=== PATIENT | male | born 1970 | race Caucasian/White ===

== ENCOUNTER → 2019-03-23 15:08 | Outpatient (CLI) | payer OTHER, SELFPAY ==
[2019-03-23 16:26] LABS: Hemoglobin A1C 5.4 % (0.0-7.0)
[2019-03-23 17:04] LABS: INR 4.01 (0.9-1.1)
[2019-03-23 17:12] LABS: Basophils # 0.1 K/mm3 (0-0.2); Basophils % 0.9 % (0.1-2.0); Eosinophils # 0.4 K/mm3 (0.0-0.4); Eosinophils % 3.7 % (0.1-12.0); Hemoglobin 16.1 g/dL (14.1-18.0); Lymphocytes # 2.1 K/mm3 (0.7-4.5); Mean Corpuscular HGB Conc 34.4 g/dL (31.8-35.4); Mean Corpuscular Hemoglobin 34.4 pg (27.0-31.2); Mean Corpuscular Volume 99.9 fl (80-94); Mean Platelet Volume 7.5 fl (7.4-10.4); Monocytes # 0.9 K/mm3 (0.1-1.0); Monocytes % 9.5 % (1.7-9.3); Neutrophils # 6.1 K/mm3 (1.8-7.8); Neutrophils % 63.9 % (37.0-80.0); Platelet Count 300 K/mm3 (142-424); Red Cell Distribution Width 18.4 % (11.5-17.5); White Blood Count 9.6 K/mm3 (4.8-10.8)
[2019-03-23 17:20] LABS: Alanine Aminotransferase 23 U/L (12-78); Albumin Level 3.2 gm/dL (3.4-5.0); Albumin/Globulin Ratio 0.8 (1.1-1.8); Alkaline Phosphatase 135 U/L (46-116); Anion Gap 13.7 mEq/L (5-15); Aspartate Amino Transferase 19 U/L (15-37); Bilirubin,Total 0.7 mg/dL (0.2-1.0); Blood Urea Nitrogen 2 mg/dL (7-18); Calcium 8.5 mg/dL (8.5-10.1); Carbon Dioxide 27 mmol/L (21.0-32.0); Chloride 101 mmol/L (98-107); Creatinine,Serum 0.74 mg/dL (0.70-1.30); Estimated Glomerular Filt Rate 112 ml/min (>60); GFR (African American) 136 ML/MIN (>60); Globulin 4.1 gm/dl (1.3-3.2); Glucose 109 mg/dL (74-106); Potassium 3.7 mmoL/L (3.5-5.1); Sodium 138 mmol/L (136-145); Thyroid Stimulating Hormone 1.33 uIU/ml (0.358-3.740); Total Protein,Serum 7.3 gm/dL (6.4-8.2)
[2019-03-26 12:59] LABS: Anti-Cardio Antibody IgM 16 MPL U/mL (0-12); Anti-Cardiolipin Antibody IgG <9 GPL U/mL (0-14); Anticardiolipin Ab,IgA,Qn <9 APL U/mL (0-11)
[2019-03-27 06:20] LABS: Hexagonal Phase Phospholipid 0 sec (0-11); PTT-LA 106.7 sec (0.0-51.9); PTT-LA Mix 58.3 sec (0.0-48.9); dRVVT 113.6 sec (0.0-47.0); dRVVT Mix 43.3 sec (0.0-47.0)
[2019-03-27 08:51] LABS: Lupus Reflex Interpretation Comment: (.)
== END ==
PROVIDERS: Visit Provider Internal Medicine Adolescent Medicine
DX: G89.4 Chronic pain syndrome (principal); D68.9 Coagulation defect, unspecified; I82.5Y3 Chronic embolism and thrombosis of unspecified deep veins of proximal lower extremity, bilateral
CPT/HCPCS: 36415; 80053; 83036; 84443; 85025; 85610; 85613; 86147

== ENCOUNTER → 2021-03-15 17:09 | Outpatient (CLI) | payer OTHER, SELFPAY | PROVIDERS: PCP Internal Medicine Adolescent Medicine; Visit Provider Nurse Practitioner | DX: Z20.822 Contact with and (suspected) exposure to COVID-19 (principal) | CPT/HCPCS: U0003 ==

== ENCOUNTER 2021-09-29 13:24 | Outpatient (CLI) | payer OTHER, SELFPAY ==
[2021-09-29 16:05] LABS: PHA INR Fingerstick 2.7 (0.9-1.1)
== END 2021-09-29 16:07 | disposition home or self-care (01) ==
LOC: ACC 13:25
PROVIDERS: PCP Internal Medicine Adolescent Medicine; Visit Provider Internal Medicine Adolescent Medicine
DX: Z51.81 Encounter for therapeutic drug level monitoring (principal); Z79.01 Long term (current) use of anticoagulants
CPT/HCPCS: 85610; 99211; G0463

== ENCOUNTER 2021-11-05 13:15 | Outpatient (CLI) | payer OTHER, SELFPAY ==
[2021-11-05 13:48] LABS: PHA INR Fingerstick 2.2 (0.9-1.1)
== END 2021-11-05 13:50 | disposition home or self-care (01) ==
LOC: ACC 13:16
PROVIDERS: PCP Internal Medicine Adolescent Medicine; Visit Provider Internal Medicine Adolescent Medicine
DX: Z51.81 Encounter for therapeutic drug level monitoring (principal); Z79.01 Long term (current) use of anticoagulants
CPT/HCPCS: 85610; 99211; G0463

== ENCOUNTER 2022-01-08 13:47 | Outpatient (CLI) | payer OTHER, SELFPAY ==
[2022-01-08 14:15] LABS: PHA INR Fingerstick 1.4 (0.9-1.1)
== END 2022-01-08 14:16 | disposition home or self-care (01) ==
LOC: ACC 13:48
PROVIDERS: PCP Internal Medicine Adolescent Medicine; Visit Provider Internal Medicine Adolescent Medicine
DX: Z51.81 Encounter for therapeutic drug level monitoring (principal); Z79.01 Long term (current) use of anticoagulants
CPT/HCPCS: 85610; 99211; G0463

== ENCOUNTER → 2022-09-22 13:19 | Outpatient (CLI) | payer OTHER, SELFPAY ==
[2022-09-22 13:37] LABS: Adenovirus,PCR Not Detected (NotDetected); Coronavirus 229E Not Detected (NotDetected); Coronavirus NL63 Not Detected (NotDetected); Coronavirus OC43 Not Detected (NotDetected); Coronovirus HKU1,PCR Not Detected (NotDetected); Human Metapneumovirus Not Detected (NotDetected)
[2022-09-22 14:04] LABS: Chloride 97 mmol/L (98-107); Sodium 133 mmol/L (136-145)
[2022-09-22 14:05] LABS: Potassium 4.1 mmoL/L (3.5-5.1)
[2022-09-22 14:06] LABS: Blood Urea Nitrogen 4 mg/dl (9-20); Estimated Glomerular Filt Rate 101 ml/min (>60); GFR (African American) 122 ML/MIN (>60)
[2022-09-22 14:07] LABS: Alanine Aminotransferase 18 U/L (12-78); Albumin Level 3.3 g/dl (3.5-5.0); Albumin/Globulin Ratio 1.1 (1.1-1.8); Alkaline Phosphatase 103 U/L (38-126); Anion Gap 11.1 mEq/L (5-15); Aspartate Amino Transferase 41 U/L (17-59); Bilirubin,Total 0.3 mg/dl (0.2-1.3); Calcium 8.2 mg/dl (8.4-10.2); Carbon Dioxide 29 mmol/L (22.0-30.0); Cholesterol 115 mg/dl (140-200); Glucose 109 mg/dl (74-100); Total Protein,Serum 6.3 g/dl (6.3-8.2); Triglycerides 131 mg/dl (30-150); VLDL Cholesterol 26 mg/dL (0-40)
[2022-09-22 14:08] LABS: Chol/HDL Ratio 7.2 (1-3.5); HDL Cholesterol 16 mg/dl (40-60); INR 2.11 (0.9-1.1); Prothrombin Time 21.8 seconds (10.1-12.5)
[2022-09-22 14:13] LABS: Basophils # 0.1 K/mm3 (0-0.2); Basophils % 2.6 % (0.1-2.0); Eosinophils % 0.6 % (0.1-12.0); Hematocrit 42.1 % (42.0-52.0); Hemoglobin 13.4 g/dL (14.1-18.0); Lymphocytes # 1.6 K/mm3 (0.7-4.5); Lymphocytes % 36.8 % (10-50); Mean Corpuscular HGB Conc 31.8 g/dL (31.8-35.4); Mean Corpuscular Volume 110.1 fl (80-94); Mean Platelet Volume 9.2 fl (7.4-10.4); Monocytes # 0.4 K/mm3 (0.1-1.0); Monocytes % 8.9 % (1.7-9.3); Neutrophils # 2.2 K/mm3 (1.8-7.8); Neutrophils % 51.1 % (37.0-80.0); Platelet Count 173 K/mm3 (142-424); Red Blood Count 3.82 M/mm3 (4.60-6.20); Red Cell Distribution Width 17.6 % (11.5-17.5); White Blood Count 4.4 K/mm3 (4.8-10.8)
[2022-09-22 14:19] LABS: Direct LDL Cholesterol 61.98 mg/dL (100-129)
[2022-09-22 22:36] LABS: Bordetella Pertussis Not Detected (NotDetected); Chlamydophila Pneumoniae, PCR Not Detected (NotDetected); Coronavirus 19, PCR Detected (NotDetected); Influenza A, PCR Not Detected (NotDetected); Influenza AH1, 2009 Not Detected (NotDetected); Influenza AH1, PCR Not Detected (NotDetected); Influenza AH3,PCR Not Detected (NotDetected); Influenza B, PCR Not Detected (NotDetected); Mycoplasma Pneumoniae, PCR Not Detected (NotDetected); Parainfluenza 1, PCR Not Detected (NotDetected); Parainfluenza 2, PCR Not Detected (NotDetected); Parainfluenza 3, PCR Not Detected (NotDetected); Parainfluenza 4, PCR Not Detected (NotDetected); Respiratory Syncytial Virus Not Detected (NotDetected); Rhinovirus/Enterovirus Not Detected (NotDetected)
== END ==
PROVIDERS: PCP Family Medicine; Visit Provider Family Medicine
DX: Z00.00 Encounter for general adult medical examination without abnormal findings (principal); J44.9 Chronic obstructive pulmonary disease, unspecified; R09.89 Other specified symptoms and signs involving the circulatory and respiratory systems; G62.9 Polyneuropathy, unspecified; Z51.81 Encounter for therapeutic drug level monitoring; Z79.01 Long term (current) use of anticoagulants
CPT/HCPCS: 36415; 80053; 80061; 85025; 85610; 87040; 87581; 87632; 87798; G0103; C9803; U0003; U0005

== ENCOUNTER 2023-03-28 14:15 | Outpatient (CLI) | payer OTHER, SELFPAY ==
[2023-03-28 14:52] LABS: PHA INR Fingerstick 1.5 (0.9-1.1)
== END 2023-03-28 14:54 ==
LOC: ACC 14:16
PROVIDERS: PCP Family Medicine; Visit Provider Family Medicine
DX: Z51.81 Encounter for therapeutic drug level monitoring (principal); Z79.01 Long term (current) use of anticoagulants
CPT/HCPCS: 85610; 99211; G0463

== ENCOUNTER → 2023-07-18 12:00 | Outpatient (CLI) | payer OTHER, SELFPAY ==
[2023-07-18 20:04] LABS: Alanine Aminotransferase 15 U/L (12-78); Albumin/Globulin Ratio 1.1 (1.1-1.8); Alkaline Phosphatase 136 U/L (38-126); Anion Gap 16.1 mEq/L (5-15); Aspartate Amino Transferase 25 U/L (17-59); Bilirubin,Total 0.4 mg/dl (0.2-1.3); Blood Urea Nitrogen 10 mg/dl (9-20); Calcium 9.2 mg/dl (8.4-10.2); Carbon Dioxide 27 mmol/L (22.0-30.0); Chloride 100 mmol/L (98-107); Chol/HDL Ratio 4.2 (1-3.5); Cholesterol 174 mg/dl (140-200); Estimated Glomerular Filt Rate 88 ml/min (>60); GFR (African American) 106 ML/MIN (>60); Globulin 3.5 g/dL (1.3-3.2); Glucose 95 mg/dl (74-100); HDL Cholesterol 41 mg/dl (40-60); Potassium 4.1 mmoL/L (3.5-5.1); Sodium 139 mmol/L (136-145); Total Protein,Serum 7.5 g/dl (6.3-8.2); Triglycerides 133 mg/dl (30-150); VLDL Cholesterol 27 mg/dL (0-40)
[2023-07-18 20:07] LABS: Basophils # 0.1 K/mm3 (0-0.2); Basophils % 0.5 % (0.1-2.0); Eosinophils # 0.2 K/mm3 (0.0-0.4); Eosinophils % 1.4 % (0.1-12.0); Hematocrit 50.3 % (42.0-52.0); Hemoglobin 16.1 g/dL (14.1-18.0); Lymphocytes # 2.1 K/mm3 (0.7-4.5); Lymphocytes % 16.4 % (10-50); Mean Corpuscular Hemoglobin 29.6 pg (27.0-31.2); Mean Corpuscular Volume 92.7 fl (80-94); Mean Platelet Volume 9.8 fl (7.4-10.4); Monocytes # 0.9 K/mm3 (0.1-1.0); Monocytes % 6.8 % (1.7-9.3); Neutrophils # 9.5 K/mm3 (1.8-7.8); Neutrophils % 74.9 % (37.0-80.0); Platelet Count 302 K/mm3 (142-424); Red Blood Count 5.43 M/mm3 (4.60-6.20); Red Cell Distribution Width 15.4 % (11.5-17.5); White Blood Count 12.7 K/mm3 (4.8-10.8)
[2023-07-18 20:15] LABS: Direct LDL Cholesterol 102.13 mg/dL (100-129)
[2023-07-18 21:55] LABS: Amphetamine/Metha Screen,Urine Negative ng/ml (<1000)
[2023-07-18 21:56] LABS: Barbiturates Screen,Urine Negative ng/ml (<200); Benzodiazepines Screen,Urine Negative ng/ml (<200)
[2023-07-18 21:57] LABS: Cannabinoid Screen,Urine Positive ng/ml (<50); Cocaine Screen,Urine Negative ng/ml (<300)
[2023-07-18 21:58] LABS: Methadone Screen,Urine Negative ng/ml (<300)
[2023-07-18 21:59] LABS: Opiate Screen,Urine Positive ng/ml (<300); Phencyclidine Screen,Urine Negative ng/ml (<25)
== END ==
PROVIDERS: PCP Family Medicine; Visit Provider Family Medicine
DX: Z79.899 Other long term (current) drug therapy (principal); G62.9 Polyneuropathy, unspecified
CPT/HCPCS: 80053; 80061; 80305; 85025

== ENCOUNTER 2025-09-30 16:43 | Outpatient (CLI) | payer OTHER, SELFPAY ==
[2025-09-30 19:33] LABS: Hematocrit 44.6 % (42.0-52.0); Hemoglobin 14.8 g/dL (14.1-18.0); Immature Granulocytes % 0.2 %; Mean Corpuscular HGB Conc 33.2 g/dL (31.8-35.4); Mean Corpuscular Hemoglobin 30.7 pg (27.0-31.2); Mean Corpuscular Volume 92.5 fl (80-94); Nucleated Red Blood Cells % 0 %; Platelet Count 281 K/mm3 (142-424); Red Blood Count 4.82 M/mm3 (4.60-6.20); Red Cell Distribution Width-SD 49.2 fL; White Blood Count 10.4 K/mm3 (4.8-10.8)
[2025-09-30 19:55] LABS: Chloride 104 mmol/L (98-107); Potassium 4.3 mmoL/L (3.5-5.1); Sodium 141 mmol/L (136-145)
[2025-09-30 19:58] LABS: Alanine Aminotransferase 15 U/L (12-78); Alkaline Phosphatase 125 U/L (38-126); Aspartate Amino Transferase 29 U/L (17-59); Bilirubin,Total 0.5 mg/dl (0.2-1.3); Blood Urea Nitrogen 3 mg/dl (9-20); Cholesterol 99 mg/dl (140-200); Creatinine,Serum 0.80 mg/dl (0.66-1.25); Estimated Glomerular Filt Rate 100 ml/min (>60); GFR (African American) 121 ML/MIN (>60); Total Protein,Serum 7.2 g/dl (6.3-8.2); Triglycerides 68 mg/dl (30-150)
[2025-09-30 19:59] LABS: Calcium 8.9 mg/dl (8.4-10.2); Glucose 92 mg/dl (74-100); HDL Cholesterol 58 mg/dl (40-60)
[2025-09-30 20:24] LABS: INR 6.14 (0.9-1.1); Prothrombin Time 59.6 seconds (10.1-12.5)
[2025-09-30 21:26] LABS: Albumin Level 4.0 g/dl (3.5-5.0); Albumin/Globulin Ratio 1.3 (1.1-1.8); Anion Gap 13.3 mEq/L (5-15); Carbon Dioxide 28 mmol/L (22.0-30.0); Globulin 3.2 g/dL (1.3-3.2)
--- OUTSIDE RECORDS SUMMARY | 2025-10-01 10:43 | XMS_ITS | Clinical Summary ---
Author Organization Healthcare Address [address] [place] [address] Care Team Providers Care Refined Syrup Operator Name Role Phone Thomas Salmeron MD Primary Care Provider [phone] Allergies Active Allergy Reactions Criticality Noted Date Comments Penicillins Rash Low 09/14/2021 Prednisone Swelling High 09/14/2021 Infliximab Anaphylaxis High 09/14/2021 Medications albuterol 0.63 MG/3ML nebulizer solution Take 0.63 mg by nebulization if needed for wheezing. Active clopidogrel (Plavix) 5 mg/mL suspension Take 75 mg by mouth 1 (one) time each day. Active warfarin (Coumadin) 2.5 MG tablet Take 2.5 mg by mouth. Take as directed per After Visit Summary. Active omeprazole (PriLOSEC) [address] capsule Take 20 mg by mouth 1 (one) time each day. Do not crush or chew. Active pregabalin (Lyrica) 100 MG capsule Take 100 mg by mouth 3 (three) times a day. Active traZODone (Desyrel) 100 MG tablet Take 100 mg by mouth if needed for sleep. Active tiZANidine (Zanaflex) 2 MG capsule Take 2 mg by mouth if needed for muscle spasms. Active oxyCODONE-aceta minophen (Percocet) 5-325 MG tablet Take 5 tablets by mouth if needed for severe pain. Active albuterol 108 (90 Base) MCG/ACT inhaler Inhale 2 puffs if needed for wheezing. Active olodaterol (Striverdi Respimat) 2.5 MCG/ACT inhaler Inhale 2 puffs 2 (two) times a day. Active tiotropium (Spiriva) [address] 1 capsule into inhaler and inhale 1 (one) time each day. Active adalimumab (Humira) 40 MG/0.8ML Prefilled Syringe Kit Inject 40 mg under the skin every 14 (fourteen) days. Active trimethoprim-po lymyxin b (Polytrim) ophthalmic solution Administer 1 drop into the right eye every 4 (four) hours. Active prednisoLONE acetate (Pred Mild) 0.12 % ophthalmic suspension 1 drop 4 (four) times a day. Active neomycin-bacitr acin-polymyxin (Neosporin) ophthalmic ointment 1 application 4 (four) times a day. Active Active Problems Problem Noted Date Diagnosed Date Glaucoma 10/19/2021 Gastroesophageal reflux disease 10/19/2021 Chronic obstructive pulmonary disease 10/19/2021 Pulmonary fibrosis 10/19/2021 Chronic anticoagulation 10/19/2021 Resolved Problems Problem Noted Date Diagnosed Date Resolved Date Decreased activity tolerance 10/19/2021 07/28/2025 Family History Medical History Relation Name Comments Anesthesia problems Neg Hx Malig Hyperthermia Neg Hx Social History Tobacco Use Types Packs/Day Years Used Date Smoking Tobacco: Every Day Cigarettes 0.5 25 Smokeless Tobacco: Never Comments:Currently 1/2 ppd. HAs smoked 25 yrs. Alcohol Use Standard Drinks/Week Comments Yes 0 (1 standard drink = 0.6 oz pur e alcohol) social. Sex and Gender Information Value Date Recorded Sex Assigned at Not on file Legal Sex Male 8:46 PM EDT Gender Identity Not on file Sexual Orientation Not on file Last Filed Vital Signs Vital Sign Reading Time Taken Comments Blood Pressure 106/84 10/20/2021 11:30 AM EST Pulse 92 10/20/2021 11:35 AM EST Temperature 36.3 C (97.3 F) 10/20/2021 11:30 AM EST Respiratory Rate 13 10/20/2021 11:35 AM EST Oxygen Saturation 93% 10/20/2021 12:05 PM EST Inhaled Oxygen Concentration - - Weight 94 kg (207 lb 3.7 oz) 10/20/2021 7:58 AM EST Height 177.8 cm (5' 10 ) 10/19/2021 8:36 AM EST Body Mass Index 29.73 10/19/2021 8:36 AM EST Plan of Treatment Health Maintenance Due Date Last Done Comments [facility]-Depression Screening 1969 [facility]-Infant/Child/Adol SDOH Screenings 1969 [facility]- SDOH Screenings 1987 [facility]-Adult SDOH Screenings 1987 [facility]-DTaP,Tdap,and Td Vaccine s (1 - Tdap) 1988 [facility]-Hepatitis B Vaccines (1 of 3 - 19+ 3-dose series) 1988 CT Colonography 2014 Colonoscopy 2014 FIT-DNA 2014 FIT 2014 FOBT 2014 Sigmoidoscopy 2014 [facility]-Colorectal Cancer Screening 2014 [facility]-Pneumococcal Vaccine: 50 + Years (1 of 1 - PCV) 2019 [facility]-Zoster Vaccines (1 of 2) 2019 [id number] Vaccine (- season) 2025 [facility]-Influenza Vaccine (#1) 2025 HPV Vaccines Aged Out No longer eligi ble based on patient's age to complete this topic [facility]-HIB Vaccines Aged Out No longer e ligible based on patient's age to complete this topic [facility]-Hepatitis A Vaccines Aged Out No longer eligible based on patient's age to complete this topic [facility]-IPV Vaccines Aged Out No longer e ligible based on patient's age to complete this topic [facility]-Rotavirus Vaccines Aged Out No lo nger eligible based on patient's age to complete this topic Medical Devices Implanted Type Area Matrix Drier Tender Device Identifier Shelf Expiration Date Model / Serial / Lot Tissue Sclera - [id number] - [id number] Implanted:Qty : 1 on 10/20/2021 by Davis Corrigan MD at [facility] Implant Right: Eye [id number] 07/04/2022 [employer] TISSUE / [id number] / [id number] Glaucoma Valve Ahmed Adult - [id number] - [id number] Implanted:Qty : 1 on 10/20/2021 by Davis Corrigan MD at [facility] Eye Implant Right: Eye [id number] 03/27/2023 [facility] / [id number] / [id number] [place] [address] [place] [address] MEDICARE Care Teams Refined Syrup Operator Relationship Specialty Start Date End Date Thomas Salmeron MD [address] [place] [id number] PCP - General 10/20/21
== END 2025-09-30 23:59 ==
LOC: LAB.DROPOF 10-01 10:38
PROVIDERS: PCP Family Medicine; Visit Provider Family Medicine
DX: G62.9 Polyneuropathy, unspecified (principal); Z79.01 Long term (current) use of anticoagulants; Z12.5 Encounter for screening for malignant neoplasm of prostate
CPT/HCPCS: 80053; 80061; 85025; 85610; G0103